=== PATIENT | female | born 1940 | race Caucasian/White ===

== ENCOUNTER 2020-10-10 09:03 | Day surgery (SDC) | payer MEDICARE, OTHER ==
[~2020-10-10] VITALS: Ht 149.9 cm; Wt 86.4 kg
[~2020-10-10 09:03] MED LIST: APIX5TAB PO; ASPI-515 PO; CARV12.52 PO; CHOL20002 PO; FERR325T18 PO; LOSA25TA25 PO; MAGN400T36 PO; SIMV80TA18 PO; TRAM-47 PO
[2020-10-10 09:42] VITALS: BP 156/72
[2020-10-10] MEDS ORDERED: MINO100C61 PO (10:17)
[2020-10-10] MEDS ORDERED: FURO20TA3 PO (10:17)
[2020-10-10] MEDS ORDERED: ACET650T59 PO (10:17)
[2020-10-10] MEDS ORDERED: SPIR25TA5 PO (10:17)
[2020-10-10] MEDS ORDERED: GLUC1TAB55 PO (10:18)
[2020-10-10 10:19] LABS: ALANINE AMINOTRANSFERASE 18 U/L (12-78); ALBUMIN 3.9 g/dL (3.4-5.0); ANION GAP 6 mmol/L (5-15); CALCIUM 9.1 mg/dL (8.5-10.1); CHLORIDE 115 mmol/L (98-107); CREATININE 1.14 mg/dL (0.55-1.02); INTERNATIONAL NORMALIZED RATIO 0.99 (0.93-1.1); PROTHROMBIN TIME 10.5 Seconds (9.6-11.5)
[2020-10-10 10:22] LABS: ALKALINE PHOSPHATASE 147 U/L (45-117); BILIRUBIN,TOTAL 0.6 mg/dL (0.2-1.0); CHOL/HDL RATIO 2.1; CHOLESTEROL, TOTAL 134 mg/dL (140-239); HDL CHOL % 49 % (28-40); HDL CHOLESTEROL (DIRECT) 65 mg/dL (40-60); LDL CHOLESTEROL,CALCULATED 44 mg/dL (54-169); LDL/HDL RATIO 0.7 (0.5-3.0); TOTAL PROTEIN 7.9 g/dL (6.4-8.2); TRIGLYCERIDES 123 mg/dL (50-200); VLDL CHOLESTEROL 25 mg/dL (0-25)
[2020-10-10] MEDS ORDERED: MIDAZOLAM 1 MG/ML, 5ML ONE (11:05)
[2020-10-10] MEDS ORDERED: FENTANYL PF 100 MCG/2ML ONE (11:05)
[2020-10-10] MEDS ORDERED: TICAGRELOR 90 MG TABLET ONE (11:06)
[2020-10-10] MEDS ORDERED: VERAPAMIL 2.5 MG/ML, 2ML ONE (11:06)
[2020-10-10] MEDS ORDERED: BIVALIRUDIN 250 MG ONE (11:06)
[2020-10-10] MEDS ORDERED: HEPARIN 1,000 UNITS/ML, 10ML ONE (11:06)
[2020-10-10] MEDS ORDERED: LIDOCAINE-MPF 1%, 5ML ONE (11:06)
[2020-10-10 11:25] LABS: BASOPHILS % (AUTO) 1 % (0-1); EOSINOPHILS % (AUTO) 1 % (1-7); LYMPHOCYTES % (AUTO) 26 % (22-44); MEAN CORPUSCULAR HEMOGLOBIN 23.9 pg (27.0-34.8); MEAN CORPUSCULAR HGB CONC 31.7 g/dL (32.4-35.8); MEAN PLATELET VOLUME 9.5 fL (7.4-10.4); MONOCYTES % (AUTO) 8 % (2-9); NEUTROPHILS % (AUTO) 64 % (42-75); PLATELET COUNT 258 x10^3/uL (130-400); RED BLOOD COUNT 5.24 x10^6/uL (3.82-5.3); RED CELL DISTRIBUTION WIDTH 17.3 % (9.6-15.2)
[2020-10-10 11:31] LABS: MD NO
[2020-10-10] MEDS ORDERED: LIDOCAINE 2%, 20ML ONE (11:41)
[2020-10-10] MEDS ORDERED: SODIUM CHLORIDE 0.9% 1,000 ML IV SCH (12:00)
== END 2020-10-10 16:16 | disposition home or self-care (01) ==
LOC: CACL 09:03
PROVIDERS: ATTEND Internal Medicine Cardiovascular Disease
DX: I20.0 Unstable angina (principal); I34.0 Nonrheumatic mitral (valve) insufficiency; I35.0 Nonrheumatic aortic (valve) stenosis; I10 Essential (primary) hypertension; E78.5 Hyperlipidemia, unspecified; I47.2 Ventricular tachycardia; Z88.1 Allergy status to other antibiotic agents; Z88.2 Allergy status to sulfonamides; Z95.0 Presence of cardiac pacemaker; Z79.899 Other long term (current) drug therapy; Z98.890 Other specified postprocedural states
CPT/HCPCS: 36415; 71046; 80053; 80061; 85025; 85610; 85730; 93306; 93458; 99156; C1760; C1769; C1894; J1644; J2250; J3010; Q9967; J0583